=== PATIENT | male | born 1985 | race African-American/Black ===

== ENCOUNTER 2016-11-10 09:27 | Observation (INO) | payer SELFPAY ==
[~2016-11-10] VITALS: Ht 175.3 cm; Wt 67.1 kg
[~2016-11-10 09:27] MED LIST: PREDNISONE20 MG PO; PROVENTIL,2.5 MG/0.5 IH; VENTOLIN HFA18 GM IH
[2016-11-10 10:31] LABS: BASE EXCESS -4.2 mEq/L (-3 to +3); BICARBONATE 22.2 mEq/L (22-26); CARBOXY HGB 1.8 % (0-5); METHEMOGLOBIN 1.1 % (0-1.5); PCO2 44 mm Hg (35-45); PO2 64 mm Hg (80-100); pH 7.31 (7.35-7.45)
[2016-11-10 10:32] LABS: COMMENTS - BLOOD GASES A+C+; DEVICE RA; SITE RR
[2016-11-10 11:04] LABS: EOSINOPHIL (%) 1.9 % (0-5); EOSINOPHIL COUNT 0.4 K/uL (0-0.3); HEMATOCRIT 44.8 % (38.0-50.0); IMMATURE GRANULOCYTE (%) 0.3 % (0.0-0.7); IMMATURE GRANULOCYTE COUNT 0.5 K/uL; LYMPHOCYTE COUNT 1.2 K/uL (1.0-2.8); MCHC 34.8 G/DL (30.0-36.0); MCV 86.2 FL (86-99); MONOCYTE (%) 4.3 % (3-12); MONOCYTE COUNT 0.9 K/uL (0-0.8); NEUTROPHIL (%) 87.1 % (45-76); NEUTROPHIL COUNT 17.4 K/uL (1.8-6.4); PLATELET COUNT 171 K/uL (156-360); RBC DIS.WIDTH-CV 13.8 % (11.8-14.6); RBC DIS.WIDTH-SD 42.6 % (39-53)
[2016-11-10 11:11] LABS: CHLORIDE 106 mEq/L (99-109); SODIUM 140 mEq/L (136-147)
[2016-11-10 11:14] LABS: D-DIMER ELISA 0.22 mg/L FEU (< 0.57); GLUCOSE 144 mg/dL (70-99)
[2016-11-10 11:15] LABS: ANION GAP 12 MEQ/L (2-14); TOTAL BILIRUBIN 0.7 mg/dL (0.0-1.0)
[2016-11-10 11:17] LABS: ALKALINE PHOSPHATASE 50 IU/L (3-129); GFR ESTIMATE (CALCULATED) > 59 mL/min/
[2016-11-10 11:18] LABS: UREA NITROGEN (BUN) 18 mg/dL (9-23)
[2016-11-10 11:24] LABS: TROP-I INTERPRETATION NEGATIVE; TROPONIN-I 0.04 ng/mL (0.0-0.30)
[2016-11-10] MEDS ORDERED: PREDNISONE50 MG PO (13:05)
[2016-11-10] MEDS ORDERED: VENTOLIN HFA18 GM IH (13:05)
[2016-11-10] MEDS ORDERED: ZITHROMAX500 MG PO (13:05)
[2016-11-10 13:09] LABS: MAGNESIUM 2.3 mg/dL (1.3-2.7)
[2016-11-10 13:35] VITALS: BP 125/71
== END 2016-11-10 13:37 | disposition left against medical advice (07) ==
LOC: EME 09:27 → EDOF 12:16
PROVIDERS: Emergency Medicine
DX: R55 Syncope and collapse (principal); J45.901 Unspecified asthma with (acute) exacerbation; R09.02 Hypoxemia; Z91.013 Allergy to seafood; Z91.041 Radiographic dye allergy status
CPT/HCPCS: 36600; 71010; 71020; 80053; 82803; 83735; 84484; 85025; 85379; 93005; 94644; 99202; 99281; 99285; G0378; J0171; J2930; J7030; J7644